=== PATIENT | female | born 1950 | race Caucasian/White ===

== ENCOUNTER → 2023-06-07 10:57 | Outpatient (REF) | payer MEDICARE, OTHER, SELFPAY ==
[2023-06-07 15:54] LABS: Blood Urea Nitrogen 15 mg/dl (7-17)
== END ==
LOC: HWLAB 10:57
PROVIDERS: ATTENDING PHYSICIAN Internal Medicine Hematology & Oncology; FAMILY PHYSICIAN Family Medicine
DX: R91.1 Solitary pulmonary nodule (principal); C34.12 Malignant neoplasm of upper lobe, left bronchus or lung; D50.9 Iron deficiency anemia, unspecified
CPT/HCPCS: 36415; 82565; 84520

== ENCOUNTER → 2023-06-14 09:12 | Outpatient (REF) | payer MEDICARE, OTHER, SELFPAY | LOC: HWRAD 09:12 | PROVIDERS: ATTENDING PHYSICIAN Internal Medicine Hematology & Oncology; FAMILY PHYSICIAN Family Medicine | DX: R91.1 Solitary pulmonary nodule (principal); C34.12 Malignant neoplasm of upper lobe, left bronchus or lung; D50.9 Iron deficiency anemia, unspecified | CPT/HCPCS: 71260; 74177; Q9967 ==

== ENCOUNTER 2023-08-26 17:35 | Inpatient (IN) | payer MEDICARE, OTHER, SELFPAY ==
[2023-08-26] VITALS (7 sets, daily range): BP systolic 86–102; BP diastolic 50–67; BMI 23.1; BMI 24.2
--- NOTE | 2023-08-26 15:06 | ED.GENMED ---
History of Present Illness
General
Chief Complaint: Fever
Time Seen by Provider: 08/26/23 15:04
Travel History
Have you had any contact with someone who has COVID-19?: No
Do you have any symptoms of coronavirus? Fever > 100 degrees, chills, cough, shortness of breath, sore throat, loss of taste or smell, muscle aches, or headache?: Yes
Symptoms:: fever
History of Present Illness
History of Present Illness:
73-year-old female with history of A-fib and prior left lung cancer presents to the emergency department for evaluation of general malaise and fatigue as well as fever. According to her son she has not gotten out of bed for approximately 3 to 4
days. Patient denies any initial symptoms otherwise but does admit to coughing on questioning. She denies any shortness of breath but does relate some discomfort to the left chest. No leg swelling, denies any vomiting, did have several bouts of
diarrhea yesterday but none today.
Past History
Past History
ED Past Medical History: Arrthythmia (afib), Cancer (ARELIS lung CA), Psychiatric (anxiety) and Other (kidney stones)
ED Past Surgical History: Gynecological
Social History
Tobacco: Smoker
Alcohol: None
Drug: None
Personal:
Living: with family
Review of Systems
Review of Systems
Allergies reviewed?: Yes
All Other Systems: ROS reviewed and negative except as documented in HPI and ROS
Phy Exam
Physical Exam
Physical Exam:
GEN: Well appearing, NAD, WDWN
Eyes: PERRLA, EOMs intact, no scleral icterus
HENT: NCAT, oral mucosa moist
Lungs: CTAB, no wheezes, rales, rhonchi, normal chest wall excursion
Cardiac: RRR, no M/R/G, no peripheral edema. Radial pulses 2+ bilat
Abdomen: S, NT, ND, NABS, no masses or hepatosplenomegaly
Neuro: AO x 3, overall poor historian
MSK: No gross deformity or ecchymosis. No edema. No digital clubbing
Skin: No rashes, petechiae. Normal color, no pallor or jaundice.
Psych: Calm, cooperative, proper hygiene
Course
Orders/Labs/Results
Orders:
Orders
08/26/23 15:13
Urinalysis Reflex To Culture Urgent
Date Specimen was Collected: 08/26/23
Time Specimen was Collected: 15:24
CR Chest - 2 Views Urgent
Comment:
Reason For Exam: fever
08/26/23 15:46
COVID-19 Antigen Urgent
Source: Nasal Swab
Complete Blood Count/With Diff Urgent
Comprehensive Metabolic Panel Urgent
Lactic Acid Q4H
Comment: CANCEL 2nd LACTIC ACID IF 1st LACTIC ACID IS LESS THAN 2
Blood Culture Q30M
CRISTIANE Source: Blood/Venous
Specimen Description:
Blood Culture Q30M
CRISTIANE Source: Blood/Venous
Specimen Description:
Influenza A+B Rapid Molecular Urgent
CRISTIANE Source: Nasal Swab
Specimen Description:
08/26/23 16:11
Acetaminophen [Tylenol] 1,000 mg PO NOW STA
CefTRIAXone [Rocephin] 1,000 mg IV NOW STA
08/26/23 17:00
Azithromycin 500 mg/250 ml [Zithromax Infusion] 500 mg in 250 ml IV NOW
08/26/23 17:12
Admit/Transfer Patient As Directed
Co-Sign Provider:
Level of Care: Inpatient admission
Assign to:: Telemetry
Physician / Group: Dr Gaspar
Diagnosis: Sepsis
Reason for Telemetry: Arrhythmia
Date to Stop Telemetry: 08/29/23
Time to Stop Telemetry: 11:00
Reason for Hospitalization: pte p/w fever and sepsis syndrome
Expected length of stay greater than two midnights?: Yes
ELOS- Estimated Length of Stay in days: 2
I certify the patient meets the requirements for IP care: Yes
08/26/23 17:13
Code Status As Directed
Resuscitation Status: Full Code
08/26/23 17:30
0.9% Sodium Chloride 1000 ml [Nss] 1,000 ml IV 100 mls/hr
08/26/23 17:43
EKG [Electrocardiogram (*1)] Stat
Reason for Study: QTc Monitoring
0.9% Sodium Chloride 1000 ml [Nss] 1,000 ml IV BOLUS
08/26/23 19:15
Lactic Acid Q4H
Comment: CANCEL 2nd LACTIC ACID IF 1st LACTIC ACID IS LESS THAN 2
08/29/23 11:00
DC Protocol for Telemetry ONCE
Abnormal Lab Results
08/26/23
15:46
WBC 12.3 H 10^3/uL
(4.8-10.8)
RBC 3.67 L 10^6/uL
(4.20-5.40)
Hgb 11.7 L g/dL
(12.0-16.0)
Hct 33.5 L %
(37.0-47.0)
MCH 31.9 H pg
(27.0-31.0)
Abs Immat Gran (auto) 0.1 H 10^3/uL
(0-0.05)
Absolute Neuts (auto) 10.5 H 10^3/uL
(1.4-6.5)
Absolute Lymphs (auto) 0.9 L 10^3/uL
(1.2-3.4)
Absolute Monos (auto) 0.7 H 10^3/uL
(0.1-0.6)
Neutrophils % 85.6 H %
(42.2-75.2)
Lymphocytes % 7.2 L %
(20.5-51.1)
Sodium 132 L mmol/L
(135-145)
BUN 24 H mg/dl
(7-17)
Glucose 145 H mg/dl
(70-99)
Alkaline Phosphatase 166 H U/L
(38-126)
08/26/23 15:46
08/26/23 15:46
Vital Signs
Initial and Last Documented VS:
Initial Vital Signs
Temp Pulse Resp BP Pulse Ox
103.3 F H 111 18 102/67 955
08/26/23 14:48 08/26/23 14:48 08/26/23 14:48 08/26/23 14:48 08/26/23 14:48
Last Documented Vital Signs
Temp Pulse Resp BP Pulse Ox
103.3 F H 111 18 102/67 955
08/26/23 14:48 08/26/23 14:48 08/26/23 14:48 08/26/23 14:48 08/26/23 14:48
MDM/Problems Addressed
MDM/Problems Addressed:
Given patient's advanced age and the fact that she is a poor historian is reasonable to admit for IV antibiotics particular given associated leukocytosis and mild hypotension.
*Critical Care Note
Total Time (30-74mins, 75-104mins- exclusive of procedures): Not Applicable
ED Attending Note
-
Portions of this chart may have been created with voice recognition software.� Occasional wrong word or��sound alike� substitutions may have occurred due to the inherent limitations of voice recognition software.
Discharge Plan
Departure
Patient Disposition: Admit
Date of Disposition: 08/26/23
Time of Disposition: 17:15
Presentation/result/management discussed w/ accepting MD/DO: Hospitalist
Discharge Problem:
Left lower lobe pneumonia
Prescriptions:
No Action
apixaban 5 mg Tablet
5 mg PO BID
diltiazem HCl 180 MG capsule,extended release 24hr
180 mg PO DAILY
gabapentin 100 mg capsule
300 mg PO HS
Referrals:
UNKNOWN - PT DOES,NOT KNOW [Family Provider] -
Interventions
Interventions:
*Risk Screen - Suicide Last Done: 08/26/23 14:48
*General Assessment Last Done: 08/26/23 14:48
*Neglect/Abuse Screening Last Done: 08/26/23 14:48
*ED COVID-19 Vaccine History Last Done: 08/26/23 14:48
Discharge Date and Time
Print Language: UKRAINIAN
[2023-08-26 15:57] LABS: % Basophils 0.4 % (0-2); % Eosinophils 0.4 % (0-6); % Immature Granulocytes 0.4 % (0-0.5); % Lymphocytes 7.2 % (20.5-51.1); % Neutrophils 85.6 % (42.2-75.2); Absolute Basophils 0.1 10^3/uL (0-0.2); Absolute Eosinophils 0.1 10^3/uL (0-0.7); Absolute Immature Granulocytes 0.1 10^3/uL (0-0.05); Absolute Lymphocytes 0.9 10^3/uL (1.2-3.4); Absolute Monocytes 0.7 10^3/uL (0.1-0.6); Absolute Neutrophils 10.5 10^3/uL (1.4-6.5); Hematocrit 33.5 % (37.0-47.0); Hemoglobin 11.7 g/dL (12.0-16.0); Mean Corp Hgb Conc. 34.9 g/dL (33.0-37.0); Mean Corpuscular Hgb 31.9 pg (27.0-31.0); Mean Corpuscular Volume 91.3 fL (81.0-99.0); Nucleated Red Blood Cells % 0 %; Red Blood Cell Count 3.67 10^6/uL (4.20-5.40); Red Cell Dist. Width 12.9 % (11.5-14.5); White Blood Cell Count 12.3 10^3/uL (4.8-10.8)
[2023-08-26 16:05] LABS: Lactic Acid 0.8 mmol/L (0.7-2.0)
[2023-08-26 16:09] LABS: COVID-19 Antigen Negative (Negative)
[2023-08-26 16:11] LABS: ALT (SGPT) 15 U/L (0-35); AST (SGOT) 18 U/L (14-36); Albumin 3.8 g/dl (3.5-5.0); Alkaline Phosphatase 166 U/L (38-126); Blood Urea Nitrogen 24 mg/dl (7-17); Calcium 10.2 mg/dl (8.4-10.2); Carbon Dioxide 23 mmol/L (22-30); Chloride 102 mmol/L (98-107); Estimated Creatinine Clearance 68 ml/min; Glucose 145 mg/dl (70-99); Potassium 3.7 mmol/L (3.5-5.1); Sodium 132 mmol/L (135-145); Total Bilirubin 0.6 mg/dl (0.2-1.3); Total Protein 7.1 g/dl (6.3-8.2); eGFR > 60.00
[2023-08-26] MEDS: ROCEPHIN 1000 MG IV (16:18)
[2023-08-26] MEDS: TYLENOL 1000 MG PO (16:18)
--- NOTE | 2023-08-26 17:17 | HPS.HSE ---
Family Physician
-
Family Physician: NOT KNOW UNKNOWN - PT DOES
Chief Complaint
-
Fever
History of Present Illness
Patient 73 years old with history of lung cancer, A-fib, presented to the hospital with fever. Patient has been not feeling well over the last 3 to 4 days with generalized weakness, fatigue, and also she has been having some increased dry cough
lately. She also had fevers at home and chills but she did not take her temperature. She had some loose bowel movement lately but not today. Denies abdominal pain nausea vomiting dysuria urgency or frequency. In the ER, Tmax 103.3 Fahrenheit,
white blood cell count of 12.3 and neutrophils 85.6% with sodium of 132 and a BUN 24 and glucose of 145. Lactate 0.8. Blood pressure low. She was given IV Rocephin and azithromycin in the ER. Chest x-ray pending radiologist report but there is
left lower lobe consolidation. She was referred to hospitalist for further evaluation.
Medical History
Past Medical History
Past Medical History: Reports Other (Lung cancer, atrial fibrillation, COPD, anxiety, nephrolithiasis.)
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
Social History
Tobacco: Former Smoker
Alcohol: None
Drug: None
Family History
Family History: Not pertinent
Allergies / Home Medications
Allergies reflects when Allergies were last updated in [employer].
Home Medications with original date entered in [employer]
Allergy/Medication List:
Allergies
Allergy/AdvReac Type Severity Reaction Status Date / Time
No Known Allergies Allergy Verified 08/26/23 14:51
Home Medications
apixaban 5 mg tablet 5 mg PO BID Blood clot prevention/tx 02/20/22
diltiazem HCl 180 mg capsule,extended release 24 hr 180 mg PO DAILY Heart disease/condition 04/13/22
gabapentin 100 mg capsule 300 mg PO HS 08/26/23
Review of Systems
-
A 12 point ROS was completed and negative except as noted: Yes
Physical Exam
Vital Signs
Vital Signs
Temp Pulse Resp BP Pulse Ox
103.3 F H 111 18 102/67 955
08/26/23 14:48 08/26/23 14:48 08/26/23 14:48 08/26/23 14:48 08/26/23 14:48
Physical exam:
General: Acutely ill
HEENT: Normocephalic, Atraumatic and Moist Mucous Membranes
Respiratory: Clear to Auscultation; Negative Wheezes, Rales or Rhonchi
Cardiac: Regular Rhythm and S1/S2
GI: Soft, Nontender and Nondistended
Musculoskeletal: No Clubbing, No Cyanosis and No Edema
Neuro: Awake, Alert and Oriented
Psych: Calm
Physical Exam
General: Other
Laboratory Results
-
08/26/23 15:46
08/26/23 15:46
Laboratory Results
Lactic Acid 0.8 mmol/L (0.7-2.0) 08/26/23 15:46
Total Bilirubin 0.6 mg/dl (0.2-1.3) 08/26/23 15:46
AST 18 U/L (14-36) 08/26/23 15:46
ALT 15 U/L (0-35) 08/26/23 15:46
Alkaline Phosphatase 166 U/L (38-126) H 08/26/23 15:46
Impression/Plan
-
IMPRESSION:
Patient is 73 years old female with multiple comorbidities including lung cancer, anemia, COPD, presented to the hospital with fever and found to have sepsis likely due to pneumonia. Patient at increased risk of morbidity and mortality due to her
presentation and comorbidities so she will need to be treated in the hospital and managed accordingly and monitor for toxicity.
Impression:
Sepsis
Pneumonia
Hypertension
Hyponatremia
Dehydration
Leukocytosis
Conditions prior to presentation:
Lung cancer
COPD
Anemia
PLAN:
IV fluids, bolus normal saline 1 L and then normal saline at 100 mL/h
If she does not respond to fluids might need to consider pressors and transfer to higher level of care
IV antibiotics, Rocephin and azithromycin
Obtain twelve-lead EKG to evaluate for QTc
Cardiac monitoring
Follow-up blood cultures
Obtain sputum culture
Continue Eliquis and this will take care of DVT prophylaxis
CODE STATUS full code. She tells me she has a paper of DNR but she wants to reverse that and wants to be Full code and son at bedside agrees.
Total time spent on today's encounter was 75 minutes which included time spent in counseling the patient/family regarding diagnosis and treatment plan as listed above, goals of care, and symptom management. Case was discussed with nursing staff,
specialists, and care coordinators/case management. All labs and imaging personally reviewed by me. Remainder the time spent in detailed review of previous records, lab data, imaging, and other medical provider documentation.
--- NOTE | 2023-08-26 19:00 | EDRN ---
Report received, took over care at this time, started antibiotics ordered and updated patient and family on bed status.
[2023-08-26] MEDS: ZITHROMAX INFUSION 250 IV (19:08)
[2023-08-26] MEDS: NSS 1000 IV ×2 (19:12→20:22)
--- NOTE | 2023-08-26 20:15 | PTCARENOTE ---
Pt was received from ED at 2014. Pt was pulled over to the unit bed, too weak to get up at this time. BP low on arrival 88/53. Temp 101.4. IVF started per order. BP slightly improved in 1hr. Pt resting in bed, family at the bedside.
[2023-08-26] MEDS: ELIQUIS 5 MG PO (21:57)
[2023-08-26] MEDS: NEURONTIN 300 MG PO (21:57)
[2023-08-27] VITALS (8 sets, daily range): BP systolic 92–127; BP diastolic 50–63; PULSE 83; O2SAT 95
[2023-08-27 03:53] LABS: Urine Albumin Trace (Neg - Trace); Urine Bilirubin Negative (Negative); Urine Character Clear (Clear); Urine Color Yellow; Urine Glucose Negative (Negative); Urine Ketone 1+ (Negative); Urine Leukocyte Negative (Negative); Urine Nitrite Negative (Negative); Urine Occult Blood 1+ (Negative); Urine Urobilinogen Negative (Neg - 1+)
[2023-08-27 04:10] LABS: Urine Amorphous Seen; Urine Bacteria Many (Negative); Urine Mucus Many; Urine Squamous Cell >30 /LPF (Few)
[2023-08-27] MEDS: NSS 1000 IV ×3 (05:11→20:17)
[2023-08-27 06:49] LABS: % Basophils 0.3 % (0-2); % Eosinophils 0.1 % (0-6); % Immature Granulocytes 0.7 % (0-0.5); % Lymphocytes 19.1 % (20.5-51.1); % Monocytes 5.8 % (1.7-9.3); Absolute Immature Granulocytes 0.1 10^3/uL (0-0.05); Absolute Lymphocytes 1.9 10^3/uL (1.2-3.4); Absolute Monocytes 0.6 10^3/uL (0.1-0.6); Absolute Neutrophils 7.5 10^3/uL (1.4-6.5); Hematocrit 29.3 % (37.0-47.0); Hemoglobin 9.9 g/dL (12.0-16.0); Mean Corp Hgb Conc. 33.8 g/dL (33.0-37.0); Mean Corpuscular Hgb 32.4 pg (27.0-31.0); Mean Corpuscular Volume 95.8 fL (81.0-99.0); Nucleated Red Blood Cells % 0 %; Red Blood Cell Count 3.06 10^6/uL (4.20-5.40); Red Cell Dist. Width 12.9 % (11.5-14.5); White Blood Cell Count 10.1 10^3/uL (4.8-10.8)
[2023-08-27 07:07] LABS: Blood Urea Nitrogen 20 mg/dl (7-17); Calcium 9.1 mg/dl (8.4-10.2); Carbon Dioxide 22 mmol/L (22-30); Chloride 110 mmol/L (98-107); Estimated Creatinine Clearance 65 ml/min; Glucose 112 mg/dl (70-99); Potassium 3.5 mmol/L (3.5-5.1); Sodium 134 mmol/L (135-145); eGFR > 60.00
[2023-08-27] MEDS: CARDIZEM CD 180 MG PO (08:29)
[2023-08-27] MEDS: ELIQUIS 5 MG PO ×2 (08:29→20:11)
--- NOTE | 2023-08-27 09:15 | W.PN.HOSP.TC ---
Today's Communication/Plan
-
Continue IV antibiotic and change as appropriate. Follow-up cultures.
Assessment / Plan
Assessment / Plan
Physical exam:
General: Acutely ill
HEENT: Normocephalic, Atraumatic and Moist Mucous Membranes
Respiratory: Decreased breath sounds bilateral; some crackles in the bases; negative Wheezes or Rhonchi
Cardiac: Regular Rhythm and S1/S2
GI: Soft, Nontender and Nondistended
Musculoskeletal: No Clubbing, No Cyanosis and No Edema
Neuro: Awake, Alert and Oriented
Psych: Calm
A/P:
Impression:
Sepsis
Pneumonia
Hypotension
Hyponatremia, improving
Dehydration
Leukocytosis, improving
Conditions prior to presentation:
Lung cancer
COPD
Anemia
PLAN:
Continue IV fluids, but decrease rate
IV antibiotics, Rocephin change to Cefepime and cont azithromycin
Obtain twelve-lead EKG to evaluate for QTc and assessable at 373
Cardiac monitoring
Follow-up blood cultures
Obtain sputum culture
Urine culture pending as well
Influenza negative
COVID-19 negative
PT OT eval
Continue Eliquis and this will take care of DVT prophylaxis
CODE STATUS full code.
Total time spent on today's encounter was 52 minutes which included time spent in counseling the patient/family regarding diagnosis and treatment plan as listed above, goals of care, and symptom management. Case was discussed with nursing staff,
specialists, and care coordinators/case management. All labs and imaging personally reviewed by me. Remainder the time spent in detailed review of previous records, lab data, imaging, and other medical provider documentation.
Anticipated Discharge: > 48 hours
Subjective/Interval History
-
Date of Service: August 27, 2023
Patient continues to have fevers overnight and Tmax 100.9 earlier this morning. Patient blood pressure improved. Still having generalized weakness. Still having some cough.
Objective Data
-
Labs:
Laboratory Results
08/27/23
06:05
WBC 10.1
Hgb 9.9 L
Hct 29.3 L
Plt Count Pending
Sodium 134 L
Potassium 3.5
Chloride 110 H
Carbon Dioxide 22
BUN 20 H
Creatinine 0.7
Glucose 112 H
Calcium 9.1
Vital Signs:
Vital Signs
Temp Pulse Resp BP Pulse Ox
100.4 F H 96 17 105/57 91
08/27/23 07:30 08/27/23 07:30 08/27/23 07:30 08/27/23 07:30 08/27/23 07:30
I&O
08/26/23 08/27/23 08/28/23
06:59 06:59 06:59
Intake Total 1340 / 1340
Balance 1340 / 1340
Review of Systems
-
All other systems: Reviewed and negative
[2023-08-27] MEDS: STERILE WATER FOR INJECTION 10 ML IV ×2 (11:55→21:56)
[2023-08-27] MEDS: MAXIPIME 1000 MG IV ×2 (11:56→21:56)
--- NOTE | 2023-08-27 15:38 | CM ---
Patient seen bedside, initial assessment completed. Patient resides with her in a single story home, three steps to enter. Patient denies DME in the home, reports she thinks she had VN in the past after lung cancer, denies SNF. Patient
confirms PCP Mihir Wolfe, pharmacy [facility], confirms prescription coverage. CM will continue to follow for discharge planning needs.
Plan; home no needs likely.
[2023-08-27] MEDS: ZITHROMAX INFUSION 250 IV (20:11)
[2023-08-27] MEDS: NEURONTIN 300 MG PO (21:56)
[2023-08-28] VITALS (7 sets, daily range): BP systolic 104–123; BP diastolic 54–64; PULSE 77–81; O2SAT 93–96
[2023-08-28 06:13] LABS: % Basophils 0.4 % (0-2); % Immature Granulocytes 0.8 % (0-0.5); % Lymphocytes 20.3 % (20.5-51.1); % Monocytes 6.6 % (1.7-9.3); % Neutrophils 69.9 % (42.2-75.2); Absolute Eosinophils 0.2 10^3/uL (0-0.7); Absolute Immature Granulocytes 0.1 10^3/uL (0-0.05); Absolute Lymphocytes 1.6 10^3/uL (1.2-3.4); Absolute Monocytes 0.5 10^3/uL (0.1-0.6); Absolute Neutrophils 5.5 10^3/uL (1.4-6.5); Hematocrit 28.9 % (37.0-47.0); Hemoglobin 9.8 g/dL (12.0-16.0); Mean Corp Hgb Conc. 33.9 g/dL (33.0-37.0); Mean Corpuscular Hgb 32.3 pg (27.0-31.0); Mean Corpuscular Volume 95.4 fL (81.0-99.0); Nucleated Red Blood Cells % 0 %; Red Blood Cell Count 3.03 10^6/uL (4.20-5.40); White Blood Cell Count 7.9 10^3/uL (4.8-10.8)
[2023-08-28 06:35] LABS: Blood Urea Nitrogen 20 mg/dl (7-17); Calcium 9.2 mg/dl (8.4-10.2); Carbon Dioxide 22 mmol/L (22-30); Chloride 110 mmol/L (98-107); Estimated Creatinine Clearance 76 ml/min; Glucose 94 mg/dl (70-99); Potassium 3.2 mmol/L (3.5-5.1); Sodium 140 mmol/L (135-145); eGFR > 60.00
[2023-08-28] MEDS: ELIQUIS 5 MG PO ×2 (08:13→20:53)
[2023-08-28] MEDS: KCL 40 MEQ PO (08:13)
[2023-08-28] MEDS: CARDIZEM CD 180 MG PO (08:14)
[2023-08-28] MEDS: MAXIPIME 1000 MG IV ×2 (09:07→22:22)
[2023-08-28] MEDS: STERILE WATER FOR INJECTION 10 ML IV ×2 (09:07→22:22)
--- NOTE | 2023-08-28 09:09 | W.PN.HOSP.TC ---
Addendum entered and electronically signed by Gabo Gaspar MD 08/28/23 17:44:
Paroxysmal atrial fibrillation
Original Note:
Today's Communication/Plan
-
Continue antibiotics. Stop IV fluid. PT OT
Assessment / Plan
Assessment / Plan
Physical exam:
General: Acutely ill
HEENT: Normocephalic, Atraumatic and Moist Mucous Membranes
Respiratory: Decreased breath sounds bilateral; some crackles in the bases; negative Wheezes or Rhonchi
Cardiac: Regular Rhythm and S1/S2
GI: Soft, Nontender and Nondistended
Musculoskeletal: No Clubbing, No Cyanosis and No Edema
Neuro: Awake, Alert and Oriented
Psych: Calm
A/P:
Impression:
Sepsis
Pneumonia
Hypokalemia
Hypotension
Hyponatremia, improving
Dehydration
Leukocytosis, improving
Conditions prior to presentation:
Lung cancer
COPD
Anemia
PLAN:
Stop IV fluids
Replete electrolytes
Continue IV cefepime and cont azithromycin
Obtained twelve-lead EKG to evaluate for QTc and reasonable at 373
Cardiac monitoring
Blood and urine cultures no growth
Obtain sputum culture if able
Influenza negative
COVID-19 negative
PT OT eval
Continue Eliquis and this will take care of DVT prophylaxis
CODE STATUS full code.
Anticipated Discharge: Within 24 hours
Subjective/Interval History
-
Date of Service: August 28, 2023
Patient has less cough and no shortness of breath. Afebrile
Objective Data
-
Labs:
Laboratory Results
08/28/23
05:09
WBC 7.9
Hgb 9.8 L
Hct 28.9 L
Plt Count
Sodium 140
Potassium 3.2 L
Chloride 110 H
Carbon Dioxide 22
BUN 20 H
Creatinine 0.6
Glucose 94
Calcium 9.2
Vital Signs:
Vital Signs
Temp Pulse Resp BP Pulse Ox
98.7 F 89 18 111/60 95
08/28/23 07:30 08/28/23 07:30 08/28/23 07:30 08/28/23 07:30 08/28/23 07:30
I&O
08/27/23 08/28/23 08/29/23
06:59 06:59 06:59
Intake Total 1340 / 1340 2049
Balance 1340 / 1340 2049
--- NOTE | 2023-08-28 11:01 | PTOTSP ---
pt currently demonstrates ability to complete simple ADLs, functional transfers, ambulation with supervision to no assistance. no acute OT needs identified, will sign off.
--- NOTE | 2023-08-28 11:55 | PN.CDI ---
CDI
- -
CDI:
Physician Documentation Request
Admit Date: 08/26/23 17:35
Dear Doctor Chasity,
Patient admitted with sepsis and pneumonia. H&P reports history of atrial fib. Pt takes Eliquis.
If possible, please provide further specificity regarding atrial fibrillation, such as:
Paroxysmal atrial fibrillation - terminates spontaneously or with intervention within 7 days of onset
Persistent atrial fibrillation - episodes of continuous AF that last more than 7 days and do not self-terminate
Permanent atrial fibrillation - when a decision has been made to accept the presence of AF and there is no further attempt to restore or maintain sinus rhythm
Other - please specify
Use of terms such as suspected, likely, concern for, or probable (associated with a specific diagnosis that is being evaluated, monitored, or treated as if it exists) are acceptable and can be coded in the inpatient setting, when documented at the
time of discharge.
Thank you,
Amanda Hernandez RN, BSN
CDI Specialist
tiger text
Please use your independent medical judgment in providing your response.
--- NOTE | 2023-08-28 15:33 | PTOTSP ---
Pt is feeling better, she is not on O2, and she is able to ambulate in hallway independently without an assistive device. She anticipates going home tomorrow. PT will sign off.
[2023-08-28] MEDS: ZITHROMAX INFUSION 250 IV (20:53)
[2023-08-28] MEDS: NEURONTIN 300 MG PO (22:22)
[2023-08-29 03:15] VITALS: BP 103/67
[2023-08-29 07:00] VITALS: BP 119/64
[2023-08-29] MEDS: CARDIZEM CD 180 MG PO (07:47)
[2023-08-29] MEDS: ELIQUIS 5 MG PO (07:47)
[2023-08-29 07:57] LABS: Blood Urea Nitrogen 15 mg/dl (7-17); Calcium 9.3 mg/dl (8.4-10.2); Carbon Dioxide 24 mmol/L (22-30); Chloride 109 mmol/L (98-107); Estimated Creatinine Clearance 76 ml/min; Glucose 103 mg/dl (70-99); Potassium 3.5 mmol/L (3.5-5.1); Sodium 137 mmol/L (135-145); eGFR > 60.00
--- NOTE | 2023-08-29 08:39 | W.PN.HOSP.TC ---
Today's Communication/Plan
-
Discharge planning today.
Assessment / Plan
Assessment / Plan
Physical exam:
General: No acute distress
HEENT: Normocephalic, Atraumatic and Moist Mucous Membranes
Respiratory: Clear to auscultation bilateral; negative Wheezes or Rhonchi
Cardiac: Regular Rhythm and S1/S2
GI: Soft, Nontender and Nondistended
Musculoskeletal: No Clubbing, No Cyanosis and No Edema
Neuro: Awake, Alert and Oriented
Psych: Calm
A/P:
Impression:
Sepsis
Pneumonia
Hypokalemia
Hypotension
Hyponatremia, improving
Dehydration
Leukocytosis, improving
Conditions prior to presentation:
Lung cancer
COPD
Anemia
PLAN:
Stop IV fluids
Replete electrolytes
Change IV antibiotics to oral Omnicef.
Obtained twelve-lead EKG to evaluate for QTc and reasonable at 373
Cardiac monitoring
Blood and urine cultures no growth
Obtain sputum culture if able
Influenza negative
COVID-19 negative
PT OT eval
Continue Eliquis and this will take care of DVT prophylaxis
CODE STATUS full code.
Anticipated Discharge: Today
Subjective/Interval History
-
Date of Service: August 29, 2023
Patient feels well today. Afebrile
Objective Data
-
Labs:
Laboratory Results
08/29/23
06:36
Sodium 137
Potassium 3.5
Chloride 109 H
Carbon Dioxide 24
BUN 15
Creatinine 0.5 L
Glucose 103 H
Calcium 9.3
Vital Signs:
Vital Signs
Temp Pulse Resp BP Pulse Ox
99.0 F 83 17 119/64 93
08/29/23 07:00 08/29/23 07:00 08/29/23 07:00 08/29/23 07:00 08/29/23 07:00
I&O
08/28/23 08/29/23 08/30/23
06:59 06:59 06:59
Intake Total 2049 660 / 660
Balance 2049 660 / 660
[2023-08-29] MEDS: MAXIPIME 1000 MG IV (09:56)
[2023-08-29] MEDS: STERILE WATER FOR INJECTION 10 ML IV (09:57)
--- NOTE | 2023-08-29 10:32 | CM ---
Patient seen in chair, patient reports she is hopeful to discharge home. Patient reports she is not on home O2. IMM reviewed, signed, placed in chart. Patient reports she has transportation home. CM will continue to follow for discharge planning
needs.
Plan; home no needs.
[2023-08-29 11:00] VITALS: BP 116/55
--- NOTE | 2023-08-29 12:14 | W.DCSUMMARY ---
Discharge Summary
Discharge Data
Date of Admission: 08/26/23
Date of Discharge: 08/29/23
-
Pending Results: No
Hospital Course
Patient 73 years old female with history of A-fib, lung cancer, COPD, presented to the hospital cough and shortness of breath generalized weakness and hypotension and fever. Patient was found to be in sepsis due to left lower lobe pneumonia. She
has significant neutrophilia upon admission with leukocytosis and fever. She was placed on broad-spectrum IV antibiotics. She also was given IV fluids. Her blood pressure stabilized. Her WBC went down from 12.3 to normal 7.9. Her neutrophilia
went down from 85.6% down to normal 69.9%. Her COVID-19 negative, influenza negative, blood cultures no growth, urine culture no growth. Patient improved substantially and symptomatically feels much back to her baseline. She has been afebrile for
several days. She has been switched to oral antibiotics to finish her course as outpatient at this point. She will be discharged in stable condition today.
Discharge duration: 36 minutes
Discharge Plan
-
Patient Disposition: Home (Routine Discharge)
Discharge Diagnosis/Procedures: Sepsis due to pneumonia. Hyponatremia. Lung cancer. Paroxysmal atrial fibrillation. Chronic obstructive pulmonary disease.
Condition: Good
Diet: Low Cholesterol
Activity: As tolerated
Driving Restrictions: As prior to admission
Blood Work: Please PCP to order CBC, BMP within 1 week
Referrals:
Primary care, provider [Other] (See less than 1 week)
Prescriptions:
New
cefdinir 300 mg Capsule
300 mg PO Q12 5 Days Qty: 10 0RF
Continued
apixaban 5 mg Tablet
5 mg PO BID
diltiazem HCl 180 MG capsule,extended release 24hr
180 mg PO DAILY
gabapentin 100 mg capsule
300 mg PO HS
Discharge Orders:
Discharge Patient (As Directed); Ordered 08/29/23
Ordered By: Gabo Jeffery Gaspar
Discharge Date and Time
Discharge Date/Time: 08/29/23 13:42
Print Language: P[place]CA[place] ISLANDER
[2023-08-29] MEDS: OMNICEF 300 MG PO (12:26)
[2023-08-29 12:30] VITALS: BP 122/61
== END 2023-08-29 13:42 | disposition home or self-care (01) | DRG 871 ==
LOC: 4 WEST ACU 17:35
PROVIDERS: Physician Assistant; ADMITTING PHYSICIAN Hospitalist; EMERGENCY PHYSICIAN Emergency Medicine
DX: A41.9 Sepsis, unspecified organism (principal); J18.9 Pneumonia, unspecified organism; E87.1 Hypo-osmolality and hyponatremia; C34.12 Malignant neoplasm of upper lobe, left bronchus or lung; J44.0 Chronic obstructive pulmonary disease with (acute) lower respiratory infection; I48.0 Paroxysmal atrial fibrillation; E86.0 Dehydration; I10 Essential (primary) hypertension; D64.9 Anemia, unspecified; Z79.01 Long term (current) use of anticoagulants
CPT/HCPCS: 71046; 80048; 80053; 81003; 81015; 83605; 85025; 87040; 87086; 87502; 87811; 93005; 96374; 97162; 97165; 97530; 99285

== ENCOUNTER → 2023-09-18 10:36 | Outpatient (REF) | payer MEDICARE, OTHER, SELFPAY | LOC: HWRAD 10:36 | PROVIDERS: ATTENDING PHYSICIAN Family Medicine | DX: J18.9 Pneumonia, unspecified organism (principal); I48.91 Unspecified atrial fibrillation; C34.92 Malignant neoplasm of unspecified part of left bronchus or lung; D68.59 Other primary thrombophilia | CPT/HCPCS: 71046 ==

== ENCOUNTER → 2023-11-08 10:26 | Outpatient (REF) | payer MEDICARE, OTHER, SELFPAY | LOC: HWRAD 10:26 | PROVIDERS: ATTENDING PHYSICIAN Internal Medicine Hematology & Oncology; FAMILY PHYSICIAN Family Medicine | DX: R91.1 Solitary pulmonary nodule (principal); C34.12 Malignant neoplasm of upper lobe, left bronchus or lung; D50.9 Iron deficiency anemia, unspecified | CPT/HCPCS: 71260; Q9967 ==

== ENCOUNTER 2024-03-03 06:06 | Day surgery (SDC) | payer MEDICARE, OTHER, SELFPAY ==
[2024-02-21 08:32] VITALS: BMI 25.2
[2024-03-03] VITALS (10 sets, daily range): BP systolic 101–131; BP diastolic 47–68; BMI 25.8; BMI 36.4
== END 2024-03-03 10:50 | disposition home or self-care (01) ==
LOC: GI 06:06
PROVIDERS: ATTENDING PHYSICIAN Internal Medicine Critical Care Medicine
DX: R59.0 Localized enlarged lymph nodes (principal); R91.1 Solitary pulmonary nodule; D14.31 Benign neoplasm of right bronchus and lung
CPT/HCPCS: 31629; 31628; 31624; 31623; 31627; 31654; 88172; 88173; 88305; 71045; 76000; 88112; 88333; 88334; 94640; C1887

== ENCOUNTER → 2024-06-05 09:59 | Outpatient (REF) | payer MEDICARE, OTHER, SELFPAY | LOC: WDC 09:59 | PROVIDERS: ATTENDING PHYSICIAN Internal Medicine Hematology & Oncology; FAMILY PHYSICIAN Family Medicine | DX: R92.8 Other abnormal and inconclusive findings on diagnostic imaging of breast (principal) | CPT/HCPCS: 76642; 77062; 77066 ==

== ENCOUNTER → 2024-06-13 09:07 | Outpatient (REF) | payer MEDICARE, OTHER, SELFPAY ==
--- NOTE | 2024-06-13 13:26 | OID.BR.INTR ---
[facility] Breast Navigator - Initial
- -
Date of Contact: 06/13/24
Met with patient. Patient given written information on navigator service available at [facility]. Will follow up as needed per protocol.
== END ==
LOC: WDC 09:07
PROVIDERS: ATTENDING PHYSICIAN Internal Medicine Hematology & Oncology; FAMILY PHYSICIAN Family Medicine
DX: N63.21 Unspecified lump in the left breast, upper outer quadrant (principal)
CPT/HCPCS: 88305; 19083; A4648

== ENCOUNTER → 2024-07-14 08:50 | Outpatient (REF) | payer MEDICARE, OTHER, SELFPAY | LOC: WDC 08:50 | PROVIDERS: ATTENDING PHYSICIAN Surgery | DX: C50.412 Malignant neoplasm of upper-outer quadrant of left female breast (principal) | CPT/HCPCS: 19285; A4648 ==

== ENCOUNTER 2024-07-15 06:18 | Day surgery (SDC) | payer MEDICARE, OTHER, SELFPAY ==
[2024-07-10 13:43] VITALS: BMI 24.5
[2024-07-15] VITALS (8 sets, daily range): BP systolic 91–130; BP diastolic 53–73; BMI 24.5; BMI 24.7
[2024-07-15] MEDS: TYLENOL 1000 MG PO (11:30)
[2024-07-15] MEDS: NORMOSOL-R/PLASMALYTE-A 1000 IV (11:36)
[2024-07-15] MEDS: LOVENOX 40 MG SC (13:25)
[2024-07-15] MEDS: ROXICODONE 5 MG PO (15:53)
--- NOTE | 2024-07-15 17:39 | W.IMMPOSTOP ---
Surgical Immed Post Op Note
-
Primary Surgeon: Holland
Assisting Surgeon: None
Pre-op Diagnosis: Left breast ca
Post-op Diagnosis: Same
Procedure Performed: Left localized lumpectomy
Anesthesia Type: TIVA
Specimen / Cultures: Left lumpectomy and margins
Estimated Blood Loss: 10cc
Complications: None
Operative Findings: mass, clip and reflector in specimen
--- NOTE | 2024-07-15 17:42 | OR.RPT ---
Operative Report
Operative Report
Operative date: 07/15/24
Surgeon: Holland
Pre-Op DX: Left breast ca
Post-Op DX: Left breast ca
Procedure: Left localized lumpectomy
The patient is a 74-year-old female with early-stage favorable left breast carcinoma met criteria to illuminate axillary sampling and presents for left localized lumpectomy. On the day prior to the procedure she presented to the [facility]
imaging center where Meg reflector was placed at the appropriate site in her left breast. On the day of surgery she presented to the same-day surgical unit where she was prepped and verified site procedure. DVT and antibiotic prophylaxis were
provided. She was taken to the operating room. In the supine position intravenous sedation was delivered. The site was prepped and draped in the usual sterile fashion and an appropriate timeout was performed by all staff members.
All tissues were anesthetized with 1% lidocaine plain. A curvilinear incision was made overlying the area of highest Meg signal. Skin flaps were elevated with the cautery and a wide lumpectomy was performed using the targeting of the Meg signal.
Time out of body was noted and the specimen was oriented for the pathologist. There is a strong Meg signal within it. Specimen radiography confirmed the presence of mass clip and reflector within it. Additional margins were harvested for
permanent analysis from the posterior, medial, superior, lateral, inferior, and anterior dimensions. These were oriented as well and sent for permanent analysis.
Hemostasis was verified. Marcaine 0.5% plain was instilled into all tissues and hemoclips were placed in the resection cavity. The wound was closed using simple interrupted 3-0 plain in deep intermediate and subcutaneous tissue and skin was closed
with a running subcuticular 4-0 Monocryl. Surgical glue and sterile compressive dressings were applied. All sponge needle and instrument counts were correct and the patient was transferred to same-day surgical unit for recovery
()
== END 2024-07-15 16:30 | disposition home or self-care (01) ==
LOC: SDS 06:18
PROVIDERS: ATTENDING PHYSICIAN Surgery; FAMILY PHYSICIAN Family Medicine
DX: C50.912 Malignant neoplasm of unspecified site of left female breast (principal)
CPT/HCPCS: 19301; 88305; 88307; 76098; 88341; 88342; A4648; L8000

== ENCOUNTER 2024-08-12 12:13 | Inpatient (IN) | payer MEDICARE, OTHER, SELFPAY ==
--- NOTE | 2024-08-08 13:22 | PTCARENOTE ---
Patients 07/10 CBC w/ platelet clumping Amina @ Dr. Metcalf office emailed
[2024-08-12] VITALS (22 sets, daily range): BP systolic 95–122; BP diastolic 50–68; BMI 24.4
[2024-08-12] MEDS: NORMOSOL-R/PLASMALYTE-A 1000 IV (12:20)
[2024-08-12] MEDS: EMEND 40 MG PO (12:28)
[2024-08-12] MEDS: TYLENOL 1000 MG PO (12:28)
[2024-08-12] MEDS: NEURONTIN 300 MG PO (12:28)
[2024-08-12] MEDS: HEPARIN 5000 UNITS SC ×2 (12:29→20:07)
--- NOTE | 2024-08-12 17:23 | PTCARENOTE ---
Note delayed due to patient care. Upon arrival to PACU, patient with O2 desaturation to mid 50% range. DOCTOR OF PODIATRY and RN at bedside. Patient placed on BVM. Anasthesia team at bedside, oral airway placed and continued on BVM. O2 saturation back to high
90's after ~[address] and patient placed on NRB mask. Dr. Corbett to bedside, CXR ordered and done in PACU. Dr. Corbett to pull back chest tube placement at bedside. Patient left on NRB. Will continue to monitor.
[2024-08-12] MEDS: DILAUDID 0.25 MG IV (17:42)
--- NOTE | 2024-08-12 18:33 | PTCARENOTE ---
Pt arrived to 2S in bed. Pt drowsy but easily arouses to verbal stimuli and then falls back asleep. Nasal cannula maintained, sats >95%. IVF infusing per order. R upper back DSG and R chest tube DSG C/D/I. Chest tube maintained to wall suction,
scant amount of sanguinous output noted. No tidaling or crepitus noted. Heart regular to ausculataion, lungs clear and diminished, pt taking shallow breaths at this time. Bowel sounds hypoactive, abdomen soft and round. Indwelling catheter clean and
intact draining yellow urine. + B/L radial and pedal pulses palpated. Bed locked and in the lowest position, safety maintained. Call awan within reach, pt resting between care.
--- NOTE | 2024-08-12 19:00 | OR.RPT ---
Operative Report
Operative Report
Date of Operation: August 12, 2024
Preoperative Diagnosis: Right lower lobe lung tumor - [id number]
Postoperative Diagnosis: Right lower lobe lung cancer - [id number]
Surgeon: Chay Corbett M.D.
Operation: Minimally invasive right lower lobe tumor resection � [id number]
Mediastinal lymph node dissection - [id number]
Anesthesia: GET
Estimated Blood Loss: 50 cc
Drains: Chest tube in the right thorax
Specimen: Right lower lobe lung tumor and mediastinal lymph nodes
Complications: None
Procedure:
The patient was taken to the operating room and placed in the usual supine position. After an adequate double-lumen endotracheal tube was placed, the patient was positioned in the left decubitus position with the right chest up. The right chest was
prepped and draped in the usual sterile fashion. At this time, a 6 cm mid-axillary incision was made with a #10 blade, and this was taken through the skin into the subcutaneous tissue. The serratus anterior muscle overlying the 5th intercostal space
was identified and split along the course of the muscle fibers. The intercostal muscle of the fifth intercostal space was divided, and the left chest was entered. The left chest was explored. The tumor in the bottom of the right lower lobe was
identified. This was wedge resected with 2 cm margins with Covidien purple tri-anthony and sent to the pathology for a frozen section, which revealed carcinoma. At this time, mediastinal lymph node dissection was performed. The lymph nodes from
stations 4 to 10 were taken and sent to pathology for permanent section. Hemostasis was obtained. A 32 Maldivian chest tube was placed through the anterior thoracostomy incision and anchored to the skin using a #2 nylon suture. The ribs were
re-approximated with 1 Vicryl in the transcostal fascia. The serratus anterior muscle was also re-approximated with 1 Vicryl in a running fashion. The fascia was approximated with 1 Vicryl in a running fashion. The subcutaneous tissue was
re-approximated with 3-0 Vicryl in a running fashion. The skin was approximated with 4-0 Monocryl in a running subcuticular fashion. Steri-strips and a sterile dressing were placed. The chest tube was connected to the Pleurovac. The patient was
placed back in the supine position and extubated without any problems. The final needle, sponge, and instrument counts were correct. The patient was transferred to the recovery room.
[2024-08-12] MEDS: D5/0.9% SODIUM CHLORIDE 1000 IV (19:32)
[2024-08-12] MEDS: TYLENOL 650 MG PO ×2 (20:07→23:59)
[2024-08-12] MEDS: COLACE 100 MG PO (20:07)
[2024-08-12] MEDS: NEURONTIN 200 MG PO (21:08)
[2024-08-12] MEDS: ROXICODONE 5 MG PO (21:53)
[2024-08-12] MEDS: ANCEF 10 IV (22:24)
[2024-08-13] VITALS (7 sets, daily range): BP systolic 98–123; BP diastolic 46–58; PULSE 66–70; O2SAT 94–95
[2024-08-13] MEDS: TYLENOL 650 MG PO ×5 (04:16→19:53)
[2024-08-13] MEDS: ANCEF 10 IV ×2 (05:43→14:28)
[2024-08-13 06:32] LABS: PT 13.5 Sec (11.4-14.6)
[2024-08-13 06:33] LABS: APTT 29.7 Sec (23.4-35.0)
[2024-08-13 06:59] LABS: Hematocrit 35.3 % (37.0-47.0); Hemoglobin 11.6 g/dL (12.0-16.0); Mean Corp Hgb Conc. 32.9 g/dL (33.0-37.0); Mean Corpuscular Hgb 31.3 pg (27.0-31.0); Mean Corpuscular Volume 95.1 fL (81.0-99.0); Red Blood Cell Count 3.71 10^6/uL (4.20-5.40); Red Cell Dist. Width 12.8 % (11.5-14.5); White Blood Cell Count 8.6 10^3/uL (4.8-10.8)
[2024-08-13 07:43] LABS: ALT (SGPT) 14 U/L (0-35); AST (SGOT) 21 U/L (14-36); Albumin 3.4 g/dl (3.5-5.0); Alkaline Phosphatase 128 U/L (38-126); Blood Urea Nitrogen 16 mg/dl (7-17); Calcium 9.1 mg/dl (8.4-10.2); Carbon Dioxide 26 mmol/L (22-30); Chloride 107 mmol/L (98-107); Estimated Creatinine Clearance 54 ml/min; Glucose 212 mg/dl (70-99); Potassium 4.6 mmol/L (3.5-5.1); Sodium 140 mmol/L (135-145); Total Bilirubin 0.4 mg/dl (0.2-1.3); eGFR > 60.00
--- NOTE | 2024-08-13 08:00 | PTCARENOTE ---
Patient complained of right chest pain level '10' intermittently for 10 seconds, then 'O'; EKG Normal Sinus Rhythm, VS 108/46 HR 71; patient stated symptoms resolved; Dr. Corbett notified via [employer].
[2024-08-13] MEDS: CARDIZEM CD 180 MG PO (08:55)
[2024-08-13] MEDS: COLACE 100 MG PO (08:55)
[2024-08-13] MEDS: NEURONTIN 200 MG PO ×3 (08:56→21:34)
[2024-08-13] MEDS: TORADOL 15 MG IV ×3 (08:56→18:19)
[2024-08-13] MEDS: HEPARIN 5000 UNITS SC ×2 (08:57→19:53)
[2024-08-13] MEDS: D5/0.9% SODIUM CHLORIDE 1000 IV (09:09)
--- NOTE | 2024-08-13 10:15 | PTCARENOTE ---
Electronic order from Dr. Corbett @10:[address] (R) Chest Tube to 'no' suction (clarification received electronically, chest tube suction disconnected at 10:27).
--- NOTE | 2024-08-13 12:10 | CM ---
CM met with patient in room. Patient confirmed demographics. Patient lives independently with and son. Patient had a history of VN. Denied history of SNF or DME> Patient is active with her PCP. Patient uses [facility] for medication services.
Patient would prefer no home care at his time, but needs to be determined by clinical outcome.
PLAN: home with no needs or Home with VN
--- NOTE | 2024-08-13 15:55 | W.PN.GENERIC ---
Assessment / Plan
-
S/p minimally invasive resection of the right lower lobe lung cancer and mediastinal lymph node dissection POD #1
Stable
CHest pain most likely secondary to chest tube irritating the pleura
CHest tube removed
Will CXR in AM
OOB and ambulate
Physician Progress Note
Subjective
Significant pain with inspiration. O/w no complaints
Objective
Vital Signs
Temp Pulse Resp BP Pulse Ox
98.2 F 65 18 98/50 96
08/13/24 12:01 08/13/24 12:01 08/13/24 12:01 08/13/24 12:01 08/13/24 12:01
Lab Results
08/13/24 05:19
08/13/24 05:19
Chest - CTA. Chest tube with serosanguinous fluid with no air leak
[2024-08-13] MEDS: COLACE PO (20:36)
[2024-08-13] MEDS: SENOKOT-S 1 TABLET PO (23:49)
[2024-08-13] MEDS: ROXICODONE 5 MG PO (23:49)
[2024-08-14] MEDS: TORADOL IV (00:16)
[2024-08-14] MEDS: TYLENOL PO ×2 (00:16→04:00)
--- NOTE | 2024-08-14 04:49 | DOWNTIME ---
There was a [employer] Client Registered Mail Clerk Downtime on 08/14/2024 from 0200 to 08/15/2023 at 0318 . Downtime documentation of patient's care, including medication administrations, has been reconciled in the electronic record per guidelines. Refer to the
patient's paper chart under the miscellaneous tab to see printed paper medication records and downtime forms.
--- NOTE | 2024-08-14 04:49 | PTCARENOTE ---
Pt placed on 2l O2 @ HS for sats of 90 on RA,,placed on 2l nasal canula able to maintain 96% rechecked and able to ween to 1l nasal canula to maintain @ 95
[2024-08-14] MEDS: TORADOL 15 MG IV ×4 (06:14→23:23)
--- NOTE | 2024-08-14 06:45 | PTCARENOTE ---
right chest wall dressing changed for moderate serosanguineous drainage @ this time. Site ooks healthy pinpoint area near suture leaking.
[2024-08-14 07:08] VITALS: BP 123/52
[2024-08-14] MEDS: TYLENOL 650 MG PO ×5 (08:14→23:22)
[2024-08-14] MEDS: CARDIZEM CD 180 MG PO (08:14)
[2024-08-14] MEDS: NEURONTIN 200 MG PO ×3 (08:14→20:39)
[2024-08-14] MEDS: HEPARIN 5000 UNITS SC (08:15)
[2024-08-14] MEDS: FEOSOL 325 MG PO (08:18)
[2024-08-14] MEDS: COLACE 100 MG PO ×2 (08:20→20:39)
--- NOTE | 2024-08-14 09:45 | CM ---
CM reviewed medical records. Patient not medically ready for discharge to home.
PLAN: home no needs.
--- NOTE | 2024-08-14 11:11 | PN.CDI ---
CDI
- -
CDI:
Physician Documentation Request
Admit Date: 08/12/24 12:13
Dear Doctor Aric,
Please review the following and provide your response in the progress notes.
Clinical Indicators:
The diagnosis of atelectasis was included in the signed chest x rays on 08/13 and 08/14
Please indicate in your progress notes if you are in agreement that the above diagnosis is valid for this patient:
____ - Atelectasis is a valid diagnosis (Please include it in your progress notes)
____ - Atelectasis is not a valid diagnosis for this patient
____ - Other
Use of terms such as suspected, likely, concern for, or probable are acceptable for a diagnosis that is being evaluated, monitored or treated as if it exists and can be coded in the inpatient setting, when documented at the time of discharge.
Thank you,
Amanda Hernandez RN, BSN
CDI Specialist
tiger text
Please use your independent medical judgment in providing your response.
--- NOTE | 2024-08-14 12:21 | W.PN.GENERIC ---
Assessment / Plan
-
S/p resection of the right lower lobe cancer and mediastinal lymph node dissection POD #2
Stable
CXR showing atelectasis is an expected findings after lung surgery
OOB and ambulate
Encourage pulm toilet
Upper airway congestion and hoarseness are secondary to difficult intubation (took about two hours for intubation)
Will continue to watch old chest tube site drainage.
Physician Progress Note
Subjective
Feeling better but c/o upper airway congestion and hoarseness. Also saturating her dsg with serosaguinous fluid.
Objective
Vital Signs
Temp Pulse Resp BP Pulse Ox
98.3 F 63 16 123/52 94
08/14/24 07:08 08/14/24 07:08 08/14/24 07:08 08/14/24 07:08 08/14/24 07:08
Lab Results
08/13/24 05:19
08/13/24 05:19
Pul - CTA x2
Chest tube site dsg changed
[2024-08-14 13:18] VITALS: BP 124/55; PULSE 58; O2SAT 96
--- NOTE | 2024-08-14 13:27 | PTOTSP ---
Pt currently at mod I level with basic self care, transfers and functional mobility in room and bathroom without AD. Encouraged pt to keep walking and using incentive spirometer. No further skilled OT indicated at this time.
[2024-08-14 14:44] VITALS: BP 112/48; PULSE 59
--- NOTE | 2024-08-14 14:51 | PTOTSP ---
Pt had chest tube removed and is now ambulating independently in the hallway with steady gait. She is able to climb steps with railing independently. No further skilled PT needs at this time. PT will sign off.
[2024-08-14 15:29] VITALS: BP 105/49
[2024-08-14] MEDS: SENOKOT-S 1 TABLET PO (20:40)
[2024-08-14 23:23] VITALS: BP 129/57
[2024-08-15] MEDS: TYLENOL PO ×2 (05:00→12:13)
[2024-08-15] MEDS: TORADOL 15 MG IV (06:23)
[2024-08-15 08:16] VITALS: BP 125/54
[2024-08-15] MEDS: NEURONTIN 200 MG PO (08:33)
[2024-08-15] MEDS: CARDIZEM CD 180 MG PO (08:33)
[2024-08-15] MEDS: TYLENOL 650 MG PO (08:33)
[2024-08-15] MEDS: COLACE PO (08:34)
--- NOTE | 2024-08-15 10:14 | W.DS.TRANS ---
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
-
Discharge Instructions:
Sleep Apnea Risk Low
Discharge Diagnosis/Procedures Left lower lobe lung cancer
Diet No restrictions
Activity As tolerated,No strenuous activity
Driving Restrictions Not until seen by your Dr
Bathing Restrictions OK to Shower
Wound Care change dressing as needed
Instructions:
Stand-Alone Forms:
Changes to Home Medications: No
Discharge Medications:
DC Medications w/original date entered in [employer]
diltiazem HCl 180 mg capsule,extended release 24 hr 180 mg PO DAILY Heart disease/condition 04/13/22
gabapentin 100 mg capsule 200 mg PO HS 08/26/23
apixaban 5 mg tablet (Eliquis) 5 mg PO BID 02/29/24
ferrous sulfate 325 mg (65 mg iron) tablet (Iron (ferrous sulfate)) 325 mg PO MOTH 02/29/24
melatonin 5 mg tablet 5 mg PO HS PRN insomnia 07/08/24
Home Medication Changes
Pending Results: No
--- NOTE | 2024-08-15 10:25 | CM ---
Cm reviewed medical records. Patient is medically ready for discharge to home. IMM given.
PLAN: home no needs
[2024-08-15 12:08] VITALS: BP 130/60
[2024-08-15] MEDS: TORADOL IV (12:13)
== END 2024-08-15 12:40 | disposition home or self-care (01) | DRG 164 ==
LOC: 2 SOUTH 12:13
PROVIDERS: ADMITTING PHYSICIAN Surgery; FAMILY PHYSICIAN Family Medicine
PROC: 0BTF4ZZ Resection of Right Lower Lung Lobe, Percutaneous Endoscopic Approach (ICD-10-PCS; 2024-08-12)
PROC: 07T74ZZ Resection of Thorax Lymphatic, Percutaneous Endoscopic Approach (ICD-10-PCS; 2024-08-12)
DX: C34.31 Malignant neoplasm of lower lobe, right bronchus or lung (principal); J98.11 Atelectasis
CPT/HCPCS: 88305; 88307; 88332; 71045; 80053; 85027; 85610; 85730; 86850; 86900; 86901; 86920; 88331; 88341; 88342; 93005; 97162; 97166; 97530; 97535; C1729

== ENCOUNTER → 2024-10-03 08:03 | Outpatient (REF) | payer MEDICARE, OTHER, SELFPAY ==
[2024-10-03 11:09] LABS: ALT (SGPT) 13 U/L (0-35); AST (SGOT) 18 U/L (14-36); Alkaline Phosphatase 149 U/L (38-126); Blood Urea Nitrogen 19 mg/dl (7-17); Calcium 10.1 mg/dl (8.4-10.2); Carbon Dioxide 28 mmol/L (22-30); Chloride 112 mmol/L (98-107); Glucose 138 mg/dl (70-99); Potassium 4.1 mmol/L (3.5-5.1); Sodium 144 mmol/L (135-145); Total Bilirubin 0.3 mg/dl (0.2-1.3); Total Protein 7.2 g/dl (6.3-8.2); eGFR > 60.00
== END ==
LOC: HWLAB 08:03
PROVIDERS: ATTENDING PHYSICIAN Internal Medicine Hematology & Oncology; FAMILY PHYSICIAN Family Medicine
DX: R91.1 Solitary pulmonary nodule (principal); C34.12 Malignant neoplasm of upper lobe, left bronchus or lung; D50.9 Iron deficiency anemia, unspecified
CPT/HCPCS: 36415; 80053